=== PATIENT | female | born 1970 | race Caucasian/White ===

== ENCOUNTER 2017-09-09 06:46 | Emergency (ER) | payer OTHER ==
[~2017-09-09] VITALS: Ht 152.4 cm; Wt 78.5 kg
[~2017-09-09 06:46] MED LIST: CLON1TAB PO; CYCL-331 PO; HYDR-2766 PO
[2017-09-09 07:03] VITALS: BP 134/96
--- NOTE | 2017-09-09 07:11 | ED.ADGEN ---
Past History Past Medical History: Anxiety, Depression, Other Past Medical History RA, Osteoporosis Past Surgical History: Appendectomy, Cholecystectomy, Hysterectomy, Other Alcohol Use: Rarely Drug Use: Marijuana Adult General HPI HPI Patient is a 47 year old female with left shoulder pain. She fell while dancing 2 weeks ago. Has continued pain to the left shoulder. Feels like it did when she broke her right clavicle. No new recent injury other than 2 weeks ago. Can post form remover the shoulder with pain. No fevers or redness noted per patient. Pain is constant. Exacerbating factors include movement. Pain is "point tender" to the acromio-clavicular area. Review of Systems Review of Systems Constitutional: Denies fever or chills : Denies dysuria or hematuria [] Musculoskeletal: Denies back pain. Integument: Has schedule surgery to remove a lymph node in the left axilla in a few days. Neurologic: Denies headache; no injury with fall. CARD: No chest pain Allergies Allergies Allergies Coded Allergies Type Severity Reaction Last Updated Verified Sulfa (Sulfonamide Antibiotics) Allergy Unknown Hives 09/13/14 No adalimumab Allergy Unknown Hives 09/13/14 No Physical Exam Physical Exam Constitutional: Well developed, well nourished, no acute distress, non-toxic appearance. [] HENT: Normocephalic, atraumatic, bilateral external ears normal, oropharynx moist, no oral exudates, nose normal. [] Eyes: conjunctiva normal Neck: No neck tenderness; No CTLS Cardiovascular:Heart rate regular rhythm, no murmur Lungs & Thorax: Bilateral breath sounds clear to auscultation Skin: Warm, dry, no erythema, no rash. No erythema to shoulder region or axilla left shoulder. Back: No tenderness, no CVA tenderness. Extremities: Left shoulder in a sling initially. Full ROM, no deformity. Point tenderness of distal clavicle. Exactly reproduces pain. Neurologic: Alert and oriented X 3, normal motor function; normal R/U/M nerve of left hand. Psychologic: Affect normal, judgement normal, mood normal. Current Patient Data Vital Signs Vital Signs Date Time Temp Pulse Resp B/P (MAP) Pulse Ox O2 Delivery O2 Flow Rate FiO2 09/09/17 07:03 98.4 95 16 97 Room Air EKG EKG [] Radiology/Procedures Radiology/Procedures Shoulder/clavicle int by me: no clavicle fracture, no fracture or dislocation of shoulder. Course & Med Decision Making Course & Med Decision Making Pertinent Labs and Imaging studies reviewed. (See chart for details) No evidence of fx. Treat with pain meds and PMD follow up. Limiting use of sling d/w patient. Needs BP check on follow up. Patient agrees. Given hx and exam cardiac w/u is not indicated Final Impression Final Impression Left shoulder pain secondary to trauma Problems: Dragnan Disclaimer Dragon Disclaimer This electronic medical record was generated, in whole or in part, using a voice recognition dictation system. LAURYN WESTFALL MD Sep 09, 2017 07:11
[2017-09-09] MEDS ORDERED: HYDR-971 PO ×2 (07:43→07:49)
--- NOTE | 2017-09-09 09:06 | RAD ---
2 view left clavicle 09/09/2017 Clinical indication: Fall with left clavicular pain. Comparison: None. Findings: No acute left clavicular fracture or traumatic malalignment. The visualized soft tissues are unremarkable. Impression: No acute fracture of the left clavicle.
--- NOTE | 2017-09-09 09:07 | RAD ---
3 view left shoulder 09/09/2017 Clinical indication: Fall with left shoulder pain Comparison: None. Findings: No acute fracture or traumatic malalignment. Acromioclavicular articulation is maintained. The periarticular soft tissues are unremarkable. Impression: No acute osseous abnormality.
== END 2017-09-09 07:57 | disposition home or self-care (01) ==
LOC: ER 06:46
DX: S49.92XA Unspecified injury of left shoulder and upper arm, initial encounter (principal); F41.9 Anxiety disorder, unspecified; F32.9 Major depressive disorder, single episode, unspecified; M81.0 Age-related osteoporosis without current pathological fracture; F12.10 Cannabis abuse, uncomplicated; Z88.2 Allergy status to sulfonamides; Z88.8 Allergy status to other drugs, medicaments and biological substances; X58.XXXA Exposure to other specified factors, initial encounter; Y93.41 Activity, dancing; Y99.8 Other external cause status; Y92.89 Other specified places as the place of occurrence of the external cause
CPT/HCPCS: 73000; 73030; 99284-25

== ENCOUNTER 2021-01-27 02:05 | Emergency (ER) | payer MEDICARE, OTHER ==
[~2021-01-27] VITALS: Ht 152.4 cm; Wt 82.9 kg
[~2021-01-27 02:05] MED LIST changes: -HYDR-2766 PO; +HYDR-2769 PO; +HYDR-3165 PO
--- NOTE | 2021-01-27 02:40 | PHYS DOC ---
Past History Past Medical History: Depression, Other Additional Past Medical Histor: carpal tunnel, rheumatoid arthritis,nerve damage-waist down,ptsd Past Surgical History: Appendectomy, Cholecystectomy, Hysterectomy, Other Alcohol Use: None Drug Use: None Adult General Chief Complaint Chief Complaint: Syncope HPI HPI Patient is a 50-year-old female with a past medical history significant for anxiety, depression, and fibromyalgia who presents to the emergency department with a chief complaint of syncope. States she was standing in her kitchen at about 10 PM earlier this evening, became lightheaded, leaned against the wall and slid down to the floor and thinks he passed out. States that her son helped her up. States that just after she woke up she had an idea of what happened and was not really confused. States she does also have migraines and has had 1 or 2 migraines a week over the last couple of months. Before syncopal episode pat rennt denies any chest pain, shortness of breath, abdominal pain, nausea, vomiting. Denies any history of seizure activity. Does state that she is on quite a few medications for her anxiety, depression and fibromyalgia/chronic pain as well as migraines. States she did take all of it today. Denies any recent travel, known ill contacts, fevers or Covid/flu/cold symptoms. Denies a ny other alcohol or drug activity. Review of Systems Review of Systems Review of systems otherwise unremarkable except noted in HPI Allergies Allergies Allergies Coded Allergies Type Severity Reaction Last Updated Verified Sulfa (Sulfonamide Antibiotics) Allergy Unknown Hives 09/13/14 No adalimumab Allergy Unknown Hives 09/13/14 No Physical Exam Physical Exam Constitutional: Well developed, well nourished, no acute distress, non-toxic appearance. [] HENT: Normocephalic, atraumatic, bilateral external ears normal, oropharynx moist, no oral exudates, nose normal. [] Eyes: conjunctiva normal, no discharge. [] Neck: Normal range of motion, no tenderness, supple, no stridor. [] Cardiovascular:Heart rate regular rhythm, no murmur [] Lungs & Thorax: Bilateral breath sounds clear to auscultation [] Abdomen: soft, no tenderness, no masses, no pulsatile masses. [] Skin: Warm, dry, no erythema, no rash. [] Extremities: No tenderness, ROM intact, no edema. [] Neurologic: Alert and oriented X 3, normal motor function, normal sensory function, cranial nerves intact, able to ambulate, no focal deficits noted. [] Psychologic: Affect normal, judgement normal, mood normal. [] Current Patient Data Vital Signs Vital Signs Date Time Temp Pulse Resp B/P (MAP) Pulse Ox O2 Delivery O2 Flow Rate FiO2 01/27/21 02:06 98.5 69 20 149/96 (113) 94 Room Air EKG EKG EKG with a rate of 73, QRS of 94, QTc of 438, no STEMI [] Radiology/Procedures Radiology/Procedures [] FINDINGS: No intracranial hemorrhage. No midline shift. Basal cisterns patent. Ventricles and sulci are unremarkable. No acute osseous abnormality. Small fluid in partially visualized right maxillary sinus. IMPRESSION: * No acute intracranial hemorrhage. Electronically signed by: Victor Manuel Vasquez MD (01/27/2021 3:33 AM) [id number] Heart Score C/O Chest Pain: No Risk Factors: Risk Factors: DM, Current or recent (<one month) smoker, HTN, HLP, family history of CAD, obesity. Risk Scores: Risk Factors: DM, Current or recent (<one month) smoker, HTN, HLP, family history of CAD, obesity. Course & Med Decision Making Course & Med Decision Making Patient is a 50-year-old female who presents with a chief complaint of syncope Vital signs not concerning. Physical exam noted above. EKG noted above with no STEMI and is normal. Troponin normal. Low risk Wells. PERC negative. NIH of 0. Patient does take a lot of central nervous system depressants including diazepam, oxycodone, cyclobenzaprine, sertraline, Zoloft which she has taken today. Laboratory analysis not concerning. Urinalysis not concerning. Imaging normal. On reassessment patient stated she was feeling better, and think she was just tired. Discussed all findings with patient and advised to follow-up with primary care physician first thing this morning to discuss ED visit and set up a follow-up as soon as possible. Gave strict return precautions to the ED. Patient grateful, verbalized understanding and agreed with plan of discharge. Dragon Disclaimer Dragon Disclaimer This electronic medical record was generated, in whole or in part, using a voice recognition dictation system. Departure Departure: Impression: Primary Impression: Syncope Disposition: HOME / SELF CARE / HOMELESS Condition: GOOD Referrals: MIRELLA PETE MD (PCP) Patient Instructions: Syncope Additional Instructions: Please read all of the attached information carefully. Your laboratory analysis, urinalysis, imaging, and EKG were all reassuring. Please call your primary care physician first thing this morning to update them on ED visit and set up a follow-up visit as soon as possible as discussed. Please come back to the emergency department immediately with new or concerning symptoms as discussed. DOLLY ELIZONDO MD January 27, 2021 02:40
--- NOTE | 2021-01-27 03:35 | RAD ---
INDICATION: Reason: syncope / Spl. Instructions: / History: COMPARISON: None. TECHNIQUE: Axial CT images obtained through the head without intravenous contrast. One or more of the following individualized dose reduction techniques were utilized for this examinat ion: 1. Automated exposure control; 2. Adjustment of the mA and/or kV according to patient size; 3 . Use of iterative reconstruction technique. FINDINGS: No intracranial hemorrhage. No midline shift. Basal cisterns patent. Ventricles and sulci are unremarkable. No acute osseous abnormality. Small fluid in partially visualized right maxillary sinus. IMPRESSION: * No acute intracranial hemorrhage. Electronically signed by: Victor Manuel Vasquez MD (01/27/2021 3:33 AM) [id number]
[2021-01-27 03:43] LABS: CALCIUM 8.9 mg/dL (8.5-10.1); CREATININE 0.7 mg/dL (0.6-1.0); GFR 89.3; POTASSIUM 3.9 mmol/L (3.5-5.1)
[2021-01-27 03:48] LABS: ALBUMIN 3.8 g/dL (3.4-5.0); ALBUMIN/GLOBULIN RATIO 1.2 (1.0-1.7); TOTAL BILIRUBIN 0.2 mg/dL (0.2-1.0); TOTAL PROTEIN 7.1 g/dL (6.4-8.2)
[2021-01-27 04:06] LABS: BASO % 1 % (0-3); EOS # 0.2 x10^3/uL (0.0-0.7); EOS % 3 % (0-3); HEMATOCRIT 36.9 % (36.0-47.0); HEMOGLOBIN 12.6 g/dL (12.0-15.5); LYMPH % 35 % (24-48); MEAN CORPUSCULAR HEMOGLOBIN 29 pg (25-35); MEAN CORPUSCULAR HGB CONC 34 g/dL (31-37); MEAN CORPUSCULAR VOLUME 84 fL (79-100); MONO # 0.5 x10^3/uL (0.0-1.1); MONO % 6 % (0-9); NEUT # 4.9 x10^3uL (1.8-7.7); NEUT % 57 % (31-73); PLATELET COUNT 300 x10^3/uL (140-400); RED BLOOD COUNT 4.41 x10^6/uL (3.50-5.40); RED CELL DISTRIBUTION WIDTH 13.6 % (11.5-14.5); WHITE BLOOD COUNT 8.7 x10^3/uL (4.0-11.0)
--- NOTE | 2021-01-27 04:21 | EKG ---
[address] [address] Test Date: 2021-01-27 Test Time: 02:14:57 Pat Name: BRANDIN HARPER Department: Room: Gender: F [employer] Super[employer]: : 1970 Requested By: DOLLY ELIZONDO Order Number: [id number] Reading MD: Measurements Intervals [place] Rate: 73 P: 43 [place]: 176 QRS: 30 QRSD: 94 T: 31 QT: 394 QTc: 438 Interpretive Statements SINUS RHYTHM NORMAL ECG RI6.02 No previous ECG available for comparison
[2021-01-27 04:39] LABS: BACTERIA,URINE 0 /HPF (0-FEW); BILIRUBIN,URINE NEG (NEG); CLARITY,URINE CLEAR; COLOR,URINE YELLOW; GLUCOSE,URINE NEG (NEG); NITRITE,URINE NEG (NEG); RBC,URINE 0 /HPF (0-2); SQUAMOUS EPITHELIAL CELL,UR MOD /LPF; UROBILINOGEN,URINE 0.2 mg/dL (0.2 mg/dL); WBC,URINE OCC /HPF (0-4)
[2021-01-27 05:51] VITALS: BP 136/92
== END 2021-01-27 06:00 | disposition home or self-care (01) ==
LOC: ER 02:05
DX: R55 Syncope and collapse (principal); R42 Dizziness and giddiness; F41.9 Anxiety disorder, unspecified; F32.9 Major depressive disorder, single episode, unspecified; M79.7 Fibromyalgia; G43.909 Migraine, unspecified, not intractable, without status migrainosus; M06.9 Rheumatoid arthritis, unspecified; F43.10 Post-traumatic stress disorder, unspecified; Z88.2 Allergy status to sulfonamides; Z88.8 Allergy status to other drugs, medicaments and biological substances
CPT/HCPCS: 36415; 70450; 80053; 81001; 83735; 84484; 85025; 93005; 99285